=== PATIENT | male | born 1940 | race Caucasian/White ===

== ENCOUNTER → 2016-11-09 | Outpatient (CLI) | payer MEDICARE, OTHER ==
[~2016-11-09] MED LIST: ASPIRIN 32325 MG/TAB PO; ASPIRIN 81M81 MG/TA2 PO; CALCIUM & MAGNE1 CAP PO; CLARITIN REDITA10 MG PO; GLUCOPHAGE1000 MG PO; GLUCOSAMINE & C1 CA1; GLUCOTROL 5M5 MG/TAB PO; GLUCOTROL10 MG PO; JANUMET 1000 MG1 TA1 PO; KLONOPIN WAFERS1 MG PO; LIPITOR 80MG80 MG PO; LOFIBRA160 MG PO; MULTIPLE VITAMI1 CAP PO; OMEGA 31000 MG PO; VITAMIN C500 MG PO; ZESTRIL40 MG PO; ZOCOR 80MG80 MG PO; ZOLOFT 100MG100 MG PO
== END ==
LOC: COL.RAD 09:29
DX: Z01.812 Encounter for preprocedural laboratory examination (principal); J90 Pleural effusion, not elsewhere classified; J92.9 Pleural plaque without asbestos; J98.4 Other disorders of lung
CPT/HCPCS: Q9967

== ENCOUNTER → 2016-11-15 | Outpatient (CLI) | payer MEDICARE, OTHER ==
[~2016-11-15] VITALS: Ht 175.3 cm; Wt 93.2 kg
[2016-11-15 12:30] VITALS: BP 143/76; PULSE 75
[2016-11-15 13:44] VITALS: BP 151/76; PULSE 70
== END ==
LOC: COL.RAD 11:58
PROVIDERS: Nurse Practitioner Family
DX: J90 Pleural effusion, not elsewhere classified (principal)
CPT/HCPCS: 19804

== ENCOUNTER → 2016-12-22 | Outpatient (CLI) | payer MEDICARE, OTHER | LOC: COL.RAD 09:36 | DX: J90 Pleural effusion, not elsewhere classified (principal) | CPT/HCPCS: Q9967 ==

== ENCOUNTER → 2017-08-24 | Outpatient (CLI) | payer MEDICARE, OTHER | LOC: SUN.DIA 14:46 | DX: E11.40 Type 2 diabetes mellitus with diabetic neuropathy, unspecified (principal); E78.5 Hyperlipidemia, unspecified; I10 Essential (primary) hypertension; E66.9 Obesity, unspecified; Z68.28 Body mass index [BMI] 28.0-28.9, adult; Z71.3 Dietary counseling and surveillance; Z87.891 Personal history of nicotine dependence | CPT/HCPCS: G0108 ==

== ENCOUNTER → 2017-10-13 | Outpatient (CLI) | payer MEDICARE, OTHER | LOC: SUN.DIA 11:01 | DX: E11.40 Type 2 diabetes mellitus with diabetic neuropathy, unspecified (principal); E78.5 Hyperlipidemia, unspecified; I10 Essential (primary) hypertension; E66.9 Obesity, unspecified; Z68.28 Body mass index [BMI] 28.0-28.9, adult; Z71.3 Dietary counseling and surveillance; Z87.891 Personal history of nicotine dependence ==

== ENCOUNTER → 2018-01-03 | Outpatient (CLI) | payer MEDICARE, OTHER | LOC: COL.RAD 14:00 | DX: J18.1 Lobar pneumonia, unspecified organism (principal); J90 Pleural effusion, not elsewhere classified; J92.9 Pleural plaque without asbestos; J98.4 Other disorders of lung | CPT/HCPCS: Q9967 ==